=== PATIENT | female | born 1990 | race Caucasian/White ===

== ENCOUNTER → 2021-10-02 16:06 | Outpatient (BNVA) | payer SELFPAY | PROVIDERS: PCP Nurse Practitioner; Visit Provider Family Medicine Adult Medicine | DX: H10.9 Unspecified conjunctivitis (principal) | CPT/HCPCS: 86592; 87491; 87591 ==

== ENCOUNTER → 2025-01-11 11:11 | Outpatient (BNVA) | payer MEDICAID, SELFPAY | PROVIDERS: PCP Nurse Practitioner; Visit Provider Nurse Practitioner Women's Health | DX: N92.0 Excessive and frequent menstruation with regular cycle (principal); R93.89 Abnormal findings on diagnostic imaging of other specified body structures; N83.8 Other noninflammatory disorders of ovary, fallopian tube and broad ligament | CPT/HCPCS: 76830 ==

== ENCOUNTER → 2025-03-06 11:24 | Outpatient (BNVA) | payer MEDICAID, SELFPAY | PROVIDERS: PCP Nurse Practitioner; Visit Provider Obstetrics & Gynecology | DX: N94.6 Dysmenorrhea, unspecified (principal) | CPT/HCPCS: 88175 ==

== ENCOUNTER → 2025-04-17 11:30 | Outpatient (BNVA) | payer MEDICAID, SELFPAY | PROVIDERS: PCP Nurse Practitioner; Visit Provider Family Medicine | DX: Z01.818 Encounter for other preprocedural examination (principal) | CPT/HCPCS: 80053; 85007; 85027 ==

== ENCOUNTER 2025-04-25 11:59 | Inpatient (IN) | payer MEDICAID, SELFPAY ==
[2025-04-25] VITALS (16 sets, daily range): BP systolic 95–118; BP diastolic 55–81; PULSE 84–100; RESP 15–17; TEMP 36.6–37.4; O2SAT 90–100
--- NOTE | 2025-04-25 01:36 | W.PM.OPSFHP ---
Same Day Surgery H&P Indication for Procedure/HPI DATE OF PROCEDURE: April 25, 2025 CHIEF COMPLAINT/INDICATIONFOR SURGICAL PROCEDURE: painful and heavy periods PREOP DIAGNOSIS: menorrhagia; dysmenorrhea PLANNED PROCEDURE: Operation Date: 04/25/25 07:00 Proposed Procedures p Laparoscopic Assist Vaginal Hysterectomy 26607, N94.6(Not Applicable) - Ron Bowen MD Medications/Allergies* Allergies/Adverse Reactions Allergy/AdvReac Type Severity Reaction Status Date / Time morphine Allergy itching Verified 04/17/25 11:03 Pertinent History/Comorbid Conditions* Medical History (Updated 01/02/25 @ 10:02 by Adeline Nguyen NP) Bilateral conjunctivitis Family History (Updated 01/02/25 @ 09:46 by Caitlin Benavides CMA) Diabetes Grandmother High cholesterol Grandmother Heart disease Grandfather Breast cancer Mother Denies family history of Colon cancer Ovarian cancer Hypertension Uterine cancer Thyroid disease Stroke Social History Smoking and tobacco/nicotine status: current every day tobacco/nicotine user Second hand smoke exposure: No Alcohol intake: never Substance/Drug Use: never Pertinent Exam Findings alert, oriented x 3, clear to auscultation bilaterally and regular rate & rhythm Recommendations Surgery/Procedure today Coding Level of Care Code Acute Code for Chg Fwd
--- NOTE | 2025-04-25 06:38 | ANES.PREANE2 ---
Pre-Anesthetic Assessment Height/Weight: Height 5 ft 4 in Weight 165 lb Temp Pulse Resp BP Pulse Ox O2 Del Method 98.4 F 91 16 115/81 100 Room Air 04/25/25 06:19 04/25/25 06:19 04/25/25 06:19 04/25/25 06:19 04/25/25 06:19 04/25/25 06:19 Preop Diagnosis: menorrhagia; dysmenorrhea Operation Date: 04/25/25 07:00 Proposed Procedures p Laparoscopic Assist Vaginal Hysterectomy 99145, N94.6(Not Applicable) - Ron Bowen MD Was Beta Deisy taken within 24 hours: N/A Was Clonidine taken within 24 hours: N/A Last intake: Intake Last Liquid Date 04/24/25 Last Liquid Time 21:00 Last Solid Date 04/24/25 Last Solid Time 21:00 Social Tobacco and No alcohol Exam alert, oriented x 3, clear to auscultation bilaterally and regular rate & rhythm Airway Submandibular: within normal limits Cervical ROM: within normal limits Mallampati: Class I Dentition: full Anesthetic Plan ASA status: 2 Anesthesia: General Other: No prior issues with anesthesia NPO since yesterday evening Denies any cardiac issues Current smoker Labs reviewed from and acceptable for procedure Type and screen performed METs greater than 4 Plan for general anesthesia Medications/Allergies Home Medications ?Medication ?Instructions ?Recorded ?Confirmed ?Last Taken ?Type cyclobenzaprine 5 mg tablet 5 mg PO DAILY PRN muscle spasm #20 03/10/25 04/25/25 04/22/25 Rx tabs Allergies Allergy/AdvReac Type Severity Reaction Status Date / Time morphine AdvReac Mild itching Verified 04/25/25 06:20 [facility] Anesthesia Medical History Bilateral conjunctivitis Family History Mother Breast cancer Grandmother Diabetes High cholesterol Grandfather Heart disease Denies family history of Colon cancer Ovarian cancer Hypertension Uterine cancer Thyroid disease Stroke Social History Smoking and tobacco/nicotine status: current every day tobacco/nicotine user Second hand smoke exposure: No Alcohol intake: never Substance/Drug Use: never Female Reproductive History Date of last menstrual period: 04/17/25
--- NOTE | 2025-04-25 06:53 | W.PM.OPSUD ---
Surgery/Procedure H&P Update DATE OF PROCEDURE: April 25, 2025 DATE H&P PERFORMED: 04/25/25 H&P UPDATE INFORMATION: I have reviewed H&P completed within last 30 days, I have examined patient prior to procedure and No changes to prior documentation PREOP DIAGNOSIS: menorrhagia; dysmenorrhea PLANNED PROCEDURE: Operation Date: 04/25/25 07:00 Proposed Procedures p Laparoscopic Assist Vaginal Hysterectomy 65693, N94.6(Not Applicable) - Ron Bowen MD
[2025-04-25] MEDS: ceFAZolin 2,000 mg SDV 2000 MG IVP ×2 (06:57→11:10)
[2025-04-25] MEDS: metroNIDAZOLE IV 500 MG/100 ML PREMIX 100 MG IV (07:00)
[2025-04-25] MEDS: lidocaine-epi 2% PF 1:200,000 20 mL SDV XX (07:45)
--- NOTE | 2025-04-25 10:08 | PC.NURSE ---
Call made to update family memberJa of surgical status. No questions or concerns at this time
--- NOTE | 2025-04-25 11:34 | PM.OP2 ---
Brief Operative Note Date of procedure: 04/25/25 Pre-op diagnosis: menorrhagia, dysmenorrhea Post-op diagnosis: same Procedure Done: attempted laparoscopic-assisted vaginal hysterectomy cystotomy repair of cystotomy exploratory laparotomy total abdominal hysterectomy cystoscopy Surgeon: Ron Bowen Estimated blood loss (mL): 500 Complications: cystotomy Post-op Plan: floor Condition: stable Disposition: PACU
[2025-04-25] MEDS: fentaNYL 50 mcg/mL INJ 2mL IVP ×5 (12:05→21:16)
--- NOTE | 2025-04-25 12:20 | ANE.PACU2 ---
Inpatient post-anesthesia follow up: Airway intact: Yes Vital signs: Temperature 98.1 F Pulse Rate 84 Respiratory Rate 16 Blood Pressure 99/62 Pulse Oximetry 92 Oxygen Delivery Me thod Room Air Oxygen Flow Rate 8 Fraction of Inspir ed Oxygen Hydration adequate: Yes Nausea and vomiting: No Pain level: 1 Mental status: Baseline
--- NOTE | 2025-04-25 12:25 | PM.OP ---
Operative Report Date of procedure: April 25, 2025 Pre-op diagnosis: menorrhagia; dysmenorrhea Post-op diagnosis: same Post-op findings: Normal-sized uterus 1 cm cystotomy, repaired Normal ovaries Normal fallopian tubes Procedure done: Attempted laparoscopic assisted vaginal hysterectomy Cystostomy Repair of cystostomy Total abdominal hysterectomy Bilateral salpingectomy cystoscopy Implants: none Specimens removed/disposition: uterus fallopian tubes Surgeon: Ron Bowen MD Anesthesia: General Estimated blood loss (mL): 500 Complications: 1 cm cystotomy Findings: see above Condition: stable Disposition: PACU Brief History: 34 y.o. with history of menorrhagia and dysmenorrhea Procedure: The patient was taken to the operating room, placed supine on the table. General endotracheal anesthesia was induced. A shrestha catheter was placed which drained clear urine. The patient was placed in dorsolithotomy position for laparoscopic surgery. The abdomen and perineum were prepped and draped in the usual sterile fashion. A Zumi uterine elevator was placed via the cervix for manipulation of the uterus. An umbilical skin incision was made measuring approximately 1 cm. A laparoscopic trocar with sheath was inserted. After confirming intraperitoneal entry, a pneumoperitoneum was achieved. A laparoscope was inserted and used to visualize the pelvic organs. Normal ovaries were seen. The uterus was not enlarged. Normal bilateral fallopian tubes were seen. The liver edge was normal. Two additional skin incisions were made measuring 0.5 cm each in the suprapubic and left lower quadrant. 5 mm trocars with sheaths were inserted via these incisions under laparoscopic visualization. A Ligasure device and endograsper were placed. The Ligasure device was used to divide the round ligaments on both sides followed by the uteroovarian ligaments. These were successfully coagulated and divided without any bleeding. This was carried down to the uterine vessels. The uterine vessels on both sides were then divided and coagulated without any difficulties. The bladder flap was dissected away. The bladder was seen to be intact. It was then decided to proceed vaginally to complete the vaginal hysterectomy portion of the procedure. The pneumoperitoneum was allowed to escape. The Zumi was removed. A vaginal Bookwalter retractor was placed. The cervicovaginal junction was incised and the anterior and posterior cul-de-sacs were entered. At this point, it was noted there was a 1 cm cystotomy with leakage of urine. 3-O chromic suture was used to repair the cystotomy. Due to difficulty in visualization, it was decided to do a Pfannenstiel incision to complete the procedure. A Pfannenstiel incision was made and carried down through subcutaneous tissue, fascia, and peritoneum. The peritoneal cavity was entered. The hysterectomy was completed by performing a colpotomy. The uterus was removed. Both fallopian tubes were also removed usin the Ligasure device. No bleeding was seen. The vaginal cuff was then closed using a running suture of O-Vicryl. No bleeding was seen. Sterile baby formula, 50 cc, was instilled into the bladder via the Shrestha catheter. The Shrestha catheter was clamped. No extravasation of sterile formula was seen in the peritoneal cavity. The fascia was then closed with a continuous suture of O-Vicryl. There was no bleeding from the subcutaneous tissue. The skin was re-approximated with Insorb meliton. The laparoscopic wounds were closed using 3-O chromic. Cystoscopy was performed which showed an intact bladder following repair with no sutures visible. The patient was placed supine and taken to the recovery room. Postoperative condition stable EBL: 500 cc Complications: none To PACU in good condition
[2025-04-25] MEDS: HYDROcodone-acetaminophen 5-325 mg Tablet PO ×2 (12:40→18:35)
[2025-04-25] MEDS: ondansetron 2 mg/ML SDV 2 mL 4 MG IVP (16:48)
[2025-04-26] VITALS (8 sets, daily range): BP systolic 100–116; BP diastolic 61–70; PULSE 87–90; RESP 15–17; TEMP 36.8–37; O2SAT 95–98
[2025-04-26] MEDS: fentaNYL 50 mcg/mL INJ 2mL IVP ×4 (01:48→20:51)
[2025-04-26] MEDS: HYDROcodone-acetaminophen 5-325 mg Tablet PO (04:40)
[2025-04-26 05:48] LABS: Hematocrit 27.7 % (36-47); Hemoglobin 9.20 g/dL (11.27-16.99); Mean Corpuscular HGB Conc 33.2 g/dL (30-55); Mean Corpuscular Hemoglobin 29.8 pg (27-33); Mean Corpuscular Volume 89.6 fl (85-98); Platelet Count 199 10^3/cmm (157-399); Red Blood Count 3.09 10^6/uL (3.85-5.65); White Blood Count 12.78 10^3/uL (3.29-11.43)
[2025-04-26] MEDS: HYDROcodone-acetaminophen 5-325 mg Tablet 2 TAB PO ×3 (08:45→17:55)
--- NOTE | 2025-04-26 14:05 | P.PN_ITS ---
FINISHING LAB TECHNICIAN Subjective 2 Subjective: Interval history: c/o severe abdominal pain requiring IV pain meds no nausea or vomiting tolerating PO although ?not much appetite? + gas pains + ambulating Vitals/I&O/Wt Last Vital Signs Temp 98.3 F 04/27/25 04:00 Pulse 92 04/27/25 04:00 Resp 16 04/27/25 04:00 BP 123/83 04/27/25 04:00 Pulse Ox 96 04/27/25 04:00 O2 Del Method Room Air 04/27/25 04:00 O2 Flow Rate 8 04/25/25 12:02 04/26/25 04/26/25 04/27/25 14:59 22:59 06:59 Output Total 740 / 740 700 / 1440 500 / 1940 Balance -740 / -740 -700 / -1440 -500 / -1940 Weight last 48 hrs Weight 165 lb Physical Exam 2 Narrative: VS afebrile; BP, P, RR stable General comfortable, awake, alert Davis draining clear yellow urine; normal urine output Lungs: clear Cor: RRR Abd: soft, nondistended Mild diffuse tenderness No rebound Wounds clean and dry Ext: normal Postop Hgb 9.2 Urinary Catheter Management: Davis: Cath Placed During This Visit: yes Reason for Continuing Indwelling Catheter: Accurate Measurement of Urinary Output in Critically Ill Patients Urinary Catheter Date of Insertion: 04/25/25 Urinary Catheter Time of Insertion: 07:30 Data 04/26/25 05:40 A&P Assessment and plan 1. S/P hysterectomy: POD #1 Attempted laparoscopic assisted vaginal hysterectomy Cystostomy Repair of cystostomy Total abdominal hysterectomy Bilateral salpingectomy cystoscopy c/o severe incisional pain continue pain management continue postop care encourage PO intake, ambulation continue Davis drainage 2. Anemia: Rx iron BID PDMP PDMP Reviewed: Not Reviewed Attestations 2 Medical Necessity Statement*: patient s/p hysterectomy, for postop care Coding Level of Care Code Acute Code for Chg Fwd Diagnoses S/P hysterectomy Z90.710 Anemia D64.9
[2025-04-27] MEDS: ondansetron 2 mg/ML SDV 2 mL 4 MG IVP (01:54)
[2025-04-27 04:00] VITALS: BP 123/83; PULSE 92; RESP 16; TEMP 36.8; O2SAT 96
[2025-04-27] MEDS: HYDROcodone-acetaminophen 5-325 mg Tablet 2 TAB PO ×2 (08:32→11:57)
--- NOTE | 2025-04-27 10:40 | PC.NURSE ---
this nurse educated pt on how to empty shrestha catheter, educated pt on a leg bag if desired to wear one, educated on s/s of infection of each incision.
--- NOTE | 2025-04-27 11:37 | PC.NURSE ---
this nurse took out pt IV in Left forearm, intact, tolerated well
[2025-04-27 12:15] VITALS: BP 98/67; PULSE 87; RESP 16; TEMP 36.7; O2SAT 100
[2025-04-27 12:30] VITALS: BP 98/67; PULSE 87; RESP 16; TEMP 36.7; O2SAT 98
--- NOTE | 2025-04-27 14:05 | P.PN_ITS ---
OCCUPATIONAL THERAPY PROFESSOR Subjective 2 Subjective: Interval history: States abdominal pain much better no nausea or vomiting tolerating PO gas pains improved + ambulating Vitals/I&O/Wt Last Vital Signs Temp 98.1 F 04/27/25 12:30 Pulse 87 04/27/25 12:30 Resp 16 04/27/25 12:30 BP 98/67 04/27/25 12:30 Pulse Ox 98 04/27/25 12:30 O2 Del Method Room Air 04/27/25 12:15 O2 Flow Rate 8 04/25/25 12:02 Physical Exam 2 Narrative: VS afebrile; BP, P, RR stable General comfortable, awake, alert Davis draining clear yellow urine; normal urine output Lungs: clear Cor: RRR Abd: soft, nondistended Mild diffuse tenderness No rebound Wounds clean and dry Ext: normal Urinary Catheter Management: Davis: Cath Placed During This Visit: yes Reason for Continuing Indwelling Catheter: Accurate Measurement of Urinary Output in Critically Ill Patients Urinary Catheter Date of Insertion: 04/25/25 Urinary Catheter Time of Insertion: 07:30 Data 04/26/25 05:40 A&P Assessment and plan 1. S/P hysterectomy: POD #2 Attempted laparoscopic assisted vaginal hysterectomy Cystostomy Repair of cystostomy Total abdominal hysterectomy Bilateral salpingectomy cystoscopy plan discharge to home today continue Davis drainage Rx Macrobid, pyridium Return to see me in two days PDMP PDMP Reviewed: Last Reviewed 04/27/25 11:36 EDT by Ron Bowen MD Attestations 2 Medical Necessity Statement*: patient s/p hysterectomy, plan to discharge to home today Coding Level of Care Code Acute Code for Chg Fwd Diagnoses S/P hysterectomy Z90.710
--- NOTE | 2025-04-27 14:25 | PM.OBGYDC ---
Discharge Providers HOME HOUSEKEEPER Date of Admission: 04/25/25 11:59 Date of Discharge: 04/27/25 Attending Provider at Admission: Ron Bowen MD Attending Provider at Discharge: Ron Bowen MD Consults: none Primary HOME HOUSEKEEPER: Ron Bowen MD Primary Care Provider: ALIX Zapata Diagnoses at Discharge Discharge Diagnosis 1. S/P hysterectomy: Details from hospital stay: 34 y.o. admitted for hysterectomy for h/o heavy and painful periods laparoscopic assisted vaginal hysterectomy was attempted with repair of cystostomy Total abdominal hysterectomy was performed patient did well postoperatively was discharged to home on the second postoperative day plan was to continue Davis drainage for ten days postoperatively Reason for Visit Reason for Visit: N94.6 Brief History: 34 y.o. admitted for hysterectomy for h/o heavy and painful periods Hospital Course Hospital Course 34 y.o. admitted for hysterectomy for h/o heavy and painful periods laparoscopic assisted vaginal hysterectomy was attempted with repair of cystostomy Total abdominal hysterectomy was performed patient did well postoperatively was discharged to home on the second postoperative day plan was to continue Davis drainage for ten days postoperatively Physical Exam Narrative: VS afebrile; BP, P, RR stable General comfortable, awake, alert Davis draining clear yellow urine; normal urine output Lungs: clear Cor: RRR Abd: soft, nondistended Mild diffuse tenderness No rebound Wounds clean and dry Ext: normal Urinary Catheter Management: Davis: Cath Placed During This Visit: yes Reason for Continuing Indwelling Catheter: Accurate Measurement of Urinary Output in Critically Ill Patients Urinary Catheter Date of Insertion: 04/25/25 Urinary Catheter Time of Insertion: 07:30 History History History 5 Term 2 1 Miscarriages/Ectopic 2 Living Children 3 Discharge Data Studies Completed and Pending Completed Studies During Hospitalization Category Date Time Status Pathology: Surgical [PTH] Routine Pth 04/25/25 11:04 Completed Pending at discharge Category Date Time Status ES surgery / GI images Routine Exams 04/25/25 08:12 Ordered Laboratory Results WBC 12.78 10^3/uL (3.29-11.43) H 04/26/25 05:40 RBC 3.09 10^6/uL (3.85-5.65) L 04/26/25 05:40 Hgb 9.20 g/dL (11.27-16.99) L 04/26/25 05:40 Hct 27.7 % (36-47) L 04/26/25 05:40 MCV 89.6 fl (85-98) 04/26/25 05:40 MCH 29.8 pg (27-33) 04/26/25 05:40 MCHC 33.2 g/dL (30-55) 04/26/25 05:40 RDW 13.7 % (12.1-15.1) 04/26/25 05:40 Plt Count 199 10^3/cmm (157-399) 04/26/25 05:40 MPV 10.9 fL (7.4-10.4) H 04/26/25 05:40 Blood Type O Positive 04/25/25 06:40 Rho(D) Type Rh positive 04/25/25 06:40 Antibody Screen Negative 04/25/25 06:40 Procedures Performed total abdominal hysterectomy bilateral salpingectomy repair of cystotomy Vitals Last Vital Signs Temp 98.1 F 04/27/25 12:30 Pulse 87 04/27/25 12:30 Resp 16 04/27/25 12:30 BP 98/67 04/27/25 12:30 Pulse Ox 98 04/27/25 12:30 O2 Del Method Room Air 04/27/25 12:15 O2 Flow Rate 8 04/25/25 12:02 Results Labs OB ([facility]): Blood Type O Positive 05/12/25 Antibody Screen Negative 05/12/25 Hct, (36-47) 36.5 % 05/31/25 Hgb, (11.27-16.99) 12.00 g/dL 05/31/25 Rho(D) Type Rh positive 05/12/25 Plt Count, (157-399) 297 10^3/cmm 05/31/25 TSH, (0.27-4.20) 0.95 uIU/mL 05/31/25 FSH 1.7 mIU/mL 05/31/25 Pap Smear Interpret See note A 03/06/25 Discharge Plan Discharge Patient Disposition: Home Condition: Stable Prescriptions: No Action hydrocodone-acetaminophen 5-325 mg tablet 1 tab PO Q6H PRN oxycodone-acetaminophen [Percocet] 5-325 mg tablet 1 tab PO Q8H PRN (Reason: pain) 7 Days Qty: 20 0RF phenazopyridine [Pyridium] 100 mg tablet 100 mg PO TID Qty: 90 2RF solifenacin [Vesicare] 10 mg tablet 10 mg PO DAILY Qty: 30 2RF polyethylene glycol 3350 [Miralax] 17 gram/dose powder 4 g PO DAILY PRN ketorolac 10 mg Tablet 10 mg PO Q8H PRN (Reason: Pain) Qty: 9 0RF Discharge Order = DC NOW: Discharge Order (Routine); Ordered 04/27/25 Ordered By: Ron oBwen Referrals: Ron Bowen MD [Physician, HOME HOUSEKEEPER] - 05/04/25 10:30 am Discharge Diet: Usual diet Discharge Activity: Increase activity as tolerated Patient Instructions: Acute Wound Care (DC), Opioid Safety (DC), Laparoscopic Hysterectomy (DC), OB Discharge Report, OB Food/Drug Interaction Guide, Opioid Safety, Post Anesthesia Care, Patient Portal & Rudy Instructions Discharge Attestations HOME HOUSEKEEPER Time Spent in Discharge Care*: less than 30 min Coding Level of Care Code Acute Code for Chg Fwd Diagnoses S/P hysterectomy Z90.710
== END 2025-04-27 12:30 | disposition home or self-care (01) | DRG 742 ==
LOC: OBGYN 13:34
PROVIDERS: Admitting Provider Obstetrics & Gynecology; PCP Nurse Practitioner; Visit Provider Obstetrics & Gynecology
PROC: 0UT9FZZ Resection of Uterus, Via Natural or Artificial Opening With Percutaneous Endoscopic Assistance (ICD-10-PCS; principal; 2025-04-25 07:00)
PROC: 0TJB8ZZ Inspection of Bladder, Via Natural or Artificial Opening Endoscopic (ICD-10-PCS; CPT 58700; 2025-04-25 07:00)
PROC: 0TJB8ZZ Inspection of Bladder, Via Natural or Artificial Opening Endoscopic (ICD-10-PCS; CPT 52000; 2025-04-25 07:00)
PROC: 0TJB8ZZ Inspection of Bladder, Via Natural or Artificial Opening Endoscopic (ICD-10-PCS; CPT 49000; 2025-04-25 07:00)
DX: N92.0 Excessive and frequent menstruation with regular cycle (principal); N99.71 Accidental puncture and laceration of a genitourinary system organ or structure during a genitourinary system procedure; N94.6 Dysmenorrhea, unspecified; F17.200 Nicotine dependence, unspecified, uncomplicated; Z83.3 Family history of diabetes mellitus; Z82.49 Family history of ischemic heart disease and other diseases of the circulatory system; Z80.3 Family history of malignant neoplasm of breast; D64.89 Other specified anemias; N72 Inflammatory disease of cervix uteri; N32.89 Other specified disorders of bladder
CPT/HCPCS: 36415; 85027; 86850; 86900; 88307; A4216; J0690; J1100; J1171; J1885; J2250; J2405; J2704; J3010; J3490; J7030; J7121; J9999

== ENCOUNTER 2025-05-01 21:16 | Emergency (ER) | payer MEDICAID, SELFPAY ==
[2025-05-01 21:20] VITALS: BP 116/62; PULSE 106; RESP 14; TEMP 36.8; O2SAT 99
--- NOTE | 2025-05-01 21:36 | XRR_ITS ---
PROCEDURE INFORMATION: Exam: XR Abdomen Exam date and time: 05/01/2025 9:39 PM Age: 34 years old Clinical indication: Constipation; Prior surgery; Surgery date: 3-7 days post-operative; Surgery type: Hysterectomy TECHNIQUE: Imaging protocol: Radiologic exam of the abdomen. Views: Frontal supine view of the abdomen. 1 View. COMPARISON: l spine FINDINGS: Gastrointestinal tract: Extensive amount of feces in the entire colon, this indicates constipation. There are no dilated bowel loops. Bones/joints: No acute osseous abnormality. XR/XR abdomen 1V* [id number] IMPRESSION: Constipation.
--- NOTE | 2025-05-01 21:37 | ED_ITS ---
HPI - Abdominal Pain 2 General: Chief Complaint: Abdominal Pain Stated Complaint: Hyst, no bowel in 6 days Time Seen by Provider: 05/01/25 21:30 History of Present Illness: Patient comes in with abdominal and rectal pain. States that she is 6 days postop from a hysterectomy. States that initially the hysterectomy was transvaginal but she states they nicked her bladder and had to open her abdomen to repair the bladder. States that she has been unable to have a bowel movement since the surgery and is starting to have pain and fullness in her rectum. States she feels like she needs to go. States that she is able to manually feel the stool there. Has tried stool softeners and enema without success. On physical exam her surgical wounds are clean dry and intact. Her abdomen is soft, nondistended. She has very minimal tenderness which is expected postop. Will check x-ray, and reassess. Differential diagnosis: Acute constipation, acute peritonitis, acute ileus Associated Symptoms: Denies fever(s) Related Data Previous Rx's ?Medication ?Instructions ?Recorded cyclobenzaprine 5 mg tablet 5 mg PO DAILY PRN muscle s pasm #20 03/10/25 tabs nitrofurantoin 100 mg PO BID #20 caps 04/27 monohydrate/macrocrystals 100 mg capsule (Macrobid) oxycodone-acetaminophen 5 mg-325 1 tab PO Q6H PRN pain #30 tabs 04/27/25 mg tablet (Percocet) phenazopyridine 100 mg tablet 100 mg PO TID #60 tabs 0 04/27/25 (Pyridium) Allergies Allergy/AdvReac Type Severity Reaction Status Date / Time morphine AdvReac Mild itching Verified 05/01/25 21:24 Review of Systems 2 Const: Denies: fever(s) or body aches Resp: Denies: dyspnea or productive cough : Reports: other (Constipation) PFSH ED 2 PFSH: Medical History (Updated 05/02/25 @ 01:28 by Tripp Jules MD) Bilateral conjunctivitis Family History Mother Breast cancer Grandmother Diabetes High cholesterol Grandfather Heart disease Denies family history of Colon cancer Ovarian cancer Hypertension Uterine cancer Thyroid disease Stroke Social History Smoking and tobacco/nicotine status: current every day tobacco/nicotine user Second hand smoke exposure: No Alcohol intake: never Substance/Drug Use: never Physical Exam 2 HENMT: COMMON NORMALS: normocephalic and atraumatic HEAD & SCALP: n ormocephalic and atraumatic Eye: COMMON NORMALS: Equal, round and reactive pupils present and EOMs intact bilaterally PUPIL: Yes Equal, round and reactive pupils present Resp: COMMON NORMALS: normal respiratory effort, No retractions and No use of accessory muscles Cardio: COMMON NORMALS: regular rate and regular rhythm RATE: regular rate RHYTHM: regular rhythm GI: OTHER: Surgical wounds are clean dry and intact, abdomen is soft, nondistended, with very mild tenderness around the surgical incision site Extremity: COMMON NORMALS: normal to inspection and full ROM Psych: COMMON NORMALS: mental status grossly normal and cooperative Course 2 Vital Signs: Vital signs: Vital Signs Temperature 98.3 F 05/01/25 21:20 Pulse Rate 92 05/01/25 23:55 Respiratory Rate 16 05/01/25 23:55 Blood Pressure 117/73 05/01/25 23:55 Pulse Oximetry 97 05/01/25 23:55 Oxygen Delivery Me thod Room Air 05/01/25 23:55 MDM - Abdominal Pain Medical Decision Making On reassessment I talked with the patient about her test results. She was able to have a large bowel movement after the enema and GoLytely. She continues to have abdominal pain. It is difficult to determine if this is normal postop pain given the specific surgery she had, after discussing it with her we will check a CT abdomen pelvis and reassess. Will also treat her pain with 0.5 mg of IV Dilaudid. On reassessment I talked with the patient about her CT results. Her CT shows no acute intra-abdominal pathology. We discussed symptoms that should prompt immediate return to the emergency department. Will discharge at this time with precautions to return for worsening or changing symptoms. Lab Data 05/01/25 22:22 05/01/25 22:22 Labs/Radiology: Radiology Impressions Abdomen X-Ray 05/01/25 21:36 IMPRESSION: Constipation. Abdomen/Pelvis CT 05/01/25 23:45 IMPRESSION: There are a few small foci of pneumoperitoneum and mild stranding in the pelvis, likely related to recent surgery. No organized fluid collection. Laboratory Results WBC 12.43 10^3/uL (3.29-11.43) H 05/01/25 22:22 Corrected WBC Cancelled 05/01/25 22:00 RBC 3.51 10^6/uL (3.85-5.65) L 05/01/25 22:22 Hgb 10.40 g/dL (11.27-16.99) L 05/01/25 22:22 Hct 31.6 % (36-47) L 05/01/25 22:22 MCV 90.0 fl (85-98) 05/01/25 22:22 MCH 29.6 pg (27-33) 05/01/25: MCHC 32.9 g/dL (30-55) 05/01/25: RDW 13.3 % (12.1-15.1) 05/01/25:22 Plt Count 357 10^3/cmm (157-399) 05/01/25 22:22 MPV 10.6 fL (7.4-10.4) H 05/01/25 22:22 Gran % Cancelled 05/01/25 22:00 Neut % (Auto) 65.4 % 05/01/25 22: Lymph % (Auto) 25.9 % 05/01/25 22: Sierra % (Auto) 6.0 % 05/01/25: Eos % (Auto) 1.9 % 05/01/25: Baso % (Auto) 0.5 % 05/01/25: Neut # (Auto) 8.13 10^3/uL (1.8-7.7) H 05/01/25 22:22 Lymph # (Auto) 3.2 10^3/uL (0.8-4.8) 05/01/25 22:22 Sierra # (Auto) 0.7 10^3/uL (0.2-0.9) 05/01/25: Eos # (Auto) 0.2 10^3/uL (0.0-0.8) 05/01/25 22:22 Baso # (Auto) 0.1 10^3/uL (0.0-0.1) 05/01/25:22 Absolute Gran (auto) Cancelled 05/01/25 22:00 Nucleated RBC % (auto) 0 % 05/01/25 22:22 Nucleated RBCs # 0.0 /100WBC 05/01/25 22:22 Sodium 137 mmol/L (136-145) 05/01/25 22:22 Potassium 3.9 mmol/L (3.5-5.1) 05/01/25 22:22 Chloride 102 mmol/L (98-107) 05/01/25 22:22 Carbon Dioxide 25 mmol/L (22-29) 05/01/25 22:22 Anion Gap 13.9 (5-19) 05/01/25 22:22 BUN 10 mg/dL (6-20) 05/01/25 22:22 Creatinine 0.6 mg/dL (0.5-0.9) 05/01/25 22:22 GFR Calculation 113.8 mL/min (90-130) 05/01/25 22:22 Glucose 99 mg/dL (65-115) 05/01/25 22:22 Calculated Osmolality 283 mOsm/kg (285-295) L 05/01/25 22:22 Calcium 9.0 mg/dL (8.5-10.5) 05/01/25 22:22 All radiology interpretation(s) finalized by discharge Discharge Plan Discharge Patient Disposition: Home Clinical Impression: Constipation due to pain medication Condition: Stable Prescriptions: No Action cyclobenzaprine 5 mg tablet 5 mg PO DAILY PRN (Reason: muscle spasm) Qty: 20 0RF Rx Instructions: take 1-2 tabs daily as needed oxycodone-acetaminophen [Percocet] 5-325 mg tablet 1 tab PO Q6H PRN (Reason: pain) Qty: 30 0RF phenazopyridine [Pyridium] 100 mg tablet 100 mg PO TID Qty: 60 2RF nitrofurantoin monohyd/m-cryst [Macrobid] 100 mg capsule 100 mg PO BID Qty: 20 0RF Rx Instructions: must administer with a meal/food Discharge Orders: Discharge ED (Routine); Ordered 05/02/25 Ordered By: Tripp Jules Patient Instructions: Opioid Safety, Pain Management, Patient Portal & Rudy Instructions Print Language: Lithuanian Coding Level of Care Code ED Gathering Machine Setter for Suleman Harding
[2025-05-01] MEDS: peg /e-lyte soln 4,000 mL Btl 1500 ML PO (22:24)
[2025-05-01 22:30] LABS: Hematocrit 31.6 % (36-47); Hemoglobin 10.40 g/dL (11.27-16.99); Mean Corpuscular HGB Conc 32.9 g/dL (30-55); Mean Corpuscular Hemoglobin 29.6 pg (27-33); Mean Corpuscular Volume 90.0 fl (85-98); Nucleated Red Blood Cells % 0 %; Platelet Count 357 10^3/cmm (157-399); Red Blood Count 3.51 10^6/uL (3.85-5.65); White Blood Count 12.43 10^3/uL (3.29-11.43)
[2025-05-01 22:47] LABS: Anion Gap 13.9 (5-19); Blood Urea Nitrogen 10 mg/dL (6-20); Calcium 9.0 mg/dL (8.5-10.5); Carbon Dioxide 25 mmol/L (22-29); Chloride 102 mmol/L (98-107); Creatinine Clr Calc Pharmacy 129.6546; Glucose 99 mg/dL (65-115); Osmolality Calculated 283 mOsm/kg (285-295); Potassium 3.9 mmol/L (3.5-5.1); Sodium 137 mmol/L (136-145)
--- NOTE | 2025-05-01 23:45 | CTR_ITS ---
PROCEDURE INFORMATION: Exam: CT Abdomen And Pelvis With Contrast Exam date and time: 05/02/2025 12:06 AM Age: 34 years old Clinical indication: Pain; Other: Uterine; Prior surgery; Surgery date: 3-7 days post-operative; Surgery type: Hysterectomy; Additional info: Worsening abd pain post op from hysterectomy TECHNIQUE: Imaging protocol: Computed tomography of the abdomen and pelvis with contrast. Radiation optimization: All CT scans at this facility use at least one of these dose optimization techniques: automated exposure control; mA and/or kV adjustment per patient size (includes targeted exams where dose is matched to clinical indication); or iterative reconstruction. Contrast material: OMNI 350; Contrast volume: 100 ml; Contrast route: INTRAVENOUS (IV); COMPARISON: CR (ABDOMEN, ) 05/01/2025 9:39 PM RADIATION DOSE METRICS: Total DLP (mGy-cm): 572.9 FINDINGS: Lungs: Subsegmental atelectasis in the left lower lobe. Liver: Normal. No mass. Gallbladder and biliary ducts: Normal. No calcified stones. No ductal dilation. Pancreas: Normal. No ductal dilation. Spleen: Normal. No splenomegaly. Adrenal glands: Normal. No mass. Kidneys and ureters: Normal. No hydronephrosis. Stomach and bowel: Unremarkable. No obstruction. No mucosal thickening. Appendix: No evidence of appendicitis. Intraperitoneal space: There are few foci of pneumoperitoneum, likely related to recent surgery. There is mild stranding in the pelvis, likely related to recent surgery. No organized fluid collection. Vasculature: Unremarkable. No abdominal aortic aneurysm. Lymph nodes: Unremarkable. No enlarged lymph nodes. Urinary bladder: The urinary bladder is decompressed around a Davis catheter. Reproductive: A right corpus luteum is noted. The uterus is surgically absent. Bones/joints: Unremarkable. No acute fracture. Soft tissues: Postsurgical changes in the anterior abdominal wall related to recent surgery. CT/CT abdomen pelvis w con* [id number] IMPRESSION: There are a few small foci of pneumoperitoneum and mild stranding in the pelvis, likely related to recent surgery. No organized fluid collection.
[2025-05-01 23:55] VITALS: BP 117/73; PULSE 92; RESP 16; O2SAT 97
[2025-05-02] MEDS: HYDROmorphone 0.5 MG/0.5 ML INJ IVP (00:07)
[2025-05-02] MEDS: iohexol 350 mg/mL 500 mL Btl (per mL) IV (00:10)
[2025-05-02 00:30] VITALS: BP 121/74; PULSE 92; RESP 15; O2SAT 95
[2025-05-02 01:53] VITALS: BP 114/69; PULSE 89; RESP 15; O2SAT 96
== END 2025-05-02 01:48 | disposition home or self-care (01) ==
PROVIDERS: Emergency Provider Emergency Medicine
DX: K59.03 Drug induced constipation (principal); Z72.0 Tobacco use; Z90.710 Acquired absence of both cervix and uterus; Z98.890 Other specified postprocedural states
CPT/HCPCS: 74018; 74177; 80048; 85025; 96361; 96374; 99285; J1171; J7030; J9999

== ENCOUNTER 2025-05-12 02:06 | Inpatient (IN) | payer MEDICAID, SELFPAY ==
--- OUTSIDE RECORDS SUMMARY | 2025-05-11 23:58 | XMS_ITS | Encounter Summary ---
Author Organization [facility] Address [address] [place] [address] Care Team Providers Care Program Management Professional Name Role Phone Unavailable Primary Care Provider Unavailabl e Reason for Visit * Reason Comments Vaginal Bleeding Patient woke up at 2 300 this evening to use the restroom. Patient noticed when she wiped that she had blood on her toilet paper. Patient states she started passing small clots initially but then the blood just kept pouring out. Patient was wrapped in a dark towel upon arrival and it was hard to tell how much blood there was on the towel, however there was significant clots. Patient had hysterectomy on 04/25/25. Initially it was vaginal, then they nicked her bladder causing them to open her up. Encounter Details Date Type Department Care Team (Late st Contact Info) Description 05/11/2025 11:58 PM CDT - 05/12/2025 1:38 AM CDT Emergency [facility] Emergency Medicine [address] [facility] [address] [place] [phone] Jase Paul MD [address] [facility] [address] [place] [phone] Vaginal bleeding (Primary Dx) Discharge Disposition: Acute Care Hospital Social History Tobacco Use Types Packs/Day Years Used Date Smoking Tobacco: Former Cigarettes Tobacco Cessation:Counseling Given: Not Answered Alcohol Use Standard Drinks/Week Comments Yes 0 (1 standard drink = 0.6 oz pur e alcohol) socially Feeling Safe Answer Date Recorded Are you in a relationship wi th someone who hurts you emotionally and/or physically? No 05/12/2025 Comments No Sex and Gender Information Value Date Recorded Sex Assigned at Not on file Legal Sex Female 11:49 PM CDT Gender Identity Not on file Sexual Orientation Not on file documented as of this encounter Last Filed Vital Signs Vital Sign Reading Time Taken Comments Blood Pressure 104/61 05/12/2025 1:15 AM CDT Pulse 77 05/12/2025 1:30 AM CDT Temperature 36.5 C (97.7 F) 05/12/2025 12:05 AM CDT Respiratory Rate 12 05/12/2025 1:30 AM CDT Oxygen Saturation 100% 05/12/2025 1:30 AM CDT Inhaled Oxygen Concentration - - Weight 75.8 kg (167 lb) 05/12/2025 12:05 AM CDT Height 162.6 cm (5' 4 ) 05/12/2025 12:05 AM CDT Body Mass Index 28.67 05/12/2025 12:05 AM CDT documented in this encounter Medications at Time of Discharge oxyCODONE-acetami nophen (PERCOCET) 5-325 mg tablet Take 1 Tablet by mouth every 4 hours as needed for Pain, Moderate. ibuprofen (MOTRIN) 200 mg tablet Take 800 mg by mouth every 6 hours as needed for Pain, Mild. documented as of this encounter ED Notes * Martir Tam RN - 05/12/2025 1:36 AM CDT Report given to [facility]. Patient cleaned and transferred to EMS stretcher. Patient continues to bleed large clots. Patient belongings sent with significant other. Patient IV's patent and saline locked. * Martir Tam RN - 05/12/2025 1:16 AM CDT Transport has been arranged with [facility]. * Martir Tam RN - 05/12/2025 12:32 AM CDT Caitlin Covarrubias is a 34 y.o. female who arrives to the Emergency Department by private car. Chief Complaint Patient presents with Vaginal Bleeding Patient woke up at 2300 this evening to use the restroom. Patient noticed when she wiped that she had blood on her toilet paper. Patient states she started passing small clots initially but then the blood just kept pouring out. Patient was wrapped in a dark towel upon arrival and it was hard to tell how much blood there was on the towel, however there was significant clots. Patient had hysterectomy on 04/25/25. Initially it was vaginal, then they nicked her bladder causing them to open her up. Patient states she had a shrestha catheter until last and has not had any issues with urinating since. Patient was up and around today but didn't lift anything or do any strenuous activity. Pain is 0/10. VSS, aaox4, ATKINS, behavior appropriate to circumstance, no acute distress at this time. Airway patent, self-maintained with even, non-labored respirations. Perfusion within normal limits forage. Skin color normal for ethnicity, warm, dry and intact. Instructed patient to remove clothing per policy, ensured patient privacy, gown provided to patient. ID band present. Patient in bed in low position with wheels locked. Patient informed of plan of care. Patient verbalized understanding and in agreement with plan of care, all questions answered. Comfort measures offered. spouse at bedside at this time. Monitors on and audible. Patient placed on continuous steel die printer, pulse ox and blood pressure monitoring. Call light at bedside. Patient encouraged to call with needs. Will continue to monitor. Weapons assessment performed. Education provided regarding facility weapon storage and securement policy. Caitlin Covarrubias denied possession of any weapons or firearms at this time * Jase Paul MD - 05/11/2025 11:49 PM CDT HISTORY OF PRESENT ILLNESS Patient is a 34-year-old with past medical history of uterine fibroids. She is here accompanied by her with complaints of vaginal bleeding. About 11:00 tonight she started passing large clotsfrom her vagina as well as continued actively bleed. She had a transvaginal hysterectomy on the of this month in [place] which was complicated by bladder injury which necessitated conversionto open. She had a Shrestha catheter in until last has been urinating since then. Denies any objects in the vagina or trauma. Has felt mildly lightheaded no nausea abdominal pain or vomiting PAST MEDICAL HISTORY REVIEWED MEDICAL: Patient has a past medical history of Adenomyosis. SURGICAL: Patient has a past surgical history that includes hysterectomy and tonsillectomy. ALLERGIES Morphine PHYSICAL EXAM INITIAL VS BP: 113/62 (05/12/25 0005), Heart Rate: 100 bpm (05/12/25 0015), Resp: 20 (05/12/25 0015), Pulse: (!) 102 (05/12/25 0015), Temp: 97.7 ??F (36.5 ??C) (05/12/254), Temp src: Oral (05/12/254), SpO2: 97 % (05/12/254), Height: 5' 4 (162.6 cm) (05/12/254), Weight: 75.8 kg (167 lb) (05/12/254), BMI (Calculated): (!) 28.67 (05/12/254) No LMP recorded. Patient has had a hysterectomy. Physical Exam Vitals and nursing note reviewed. Exam conducted with a head of training and development present. Constitutional: General: She is not in acute distress. Appearance: Normal appearance. She is normal weight. She is not ill-appearing, toxic-appearing or diaphoretic. HENT: Head: Normocephalic and atraumatic. Nose: Nose normal. Cardiovascular: Rate and Rhythm: Normal rate and regular rhythm. Pulses: Normal pulses. Heart sounds: Normal heart sounds. Pulmonary: Effort: Pulmonary effort is normal. Breath sounds: Normal breath sounds. Abdominal: General: Abdomen is flat. Genitourinary: General: Normal vulva. Exam position: Knee-chest position. Vagina: Bleeding present. Comments: Moderate continual bleeding with 2 large plum sized clots no obvious source of bleeding Skin: General: Skin is warm. Neurological: General: No focal deficit present. Mental Status: She is alert and oriented to person, place, and time. DIAGNOSTICS LAB: CBC WITH DIFFERENTIAL - Abnormal Result Value WBC 12.7 (*) RBC 3.54 (*) HEMOGLOBIN 10.6 (*) HEMATOCRIT 31.9 (*) MCV 90.1 MCH 29.9 MCHC 33.2 RDW 13.5 RDW-STDEV 44.9 PLATELETS 456 (*) MPV 10.9 COMPREHENSIVE METABOLIC PANEL - Abnormal SODIUM 139 POTASSIUM 3.9 CHLORIDE 103 CO2 23 CALCIUM 9.6 BUN 20 CREATININE 0.76 GLUCOSE 140 (*) TOTAL PROTEIN 6.8 ALBUMIN 4.4 BILIRUBIN TOTAL <0.2 ALKALINE PHOSPHATASE 48 AST 19 ALT 26 GFR >60 ANION GAP 13 LACTIC ACID - Abnormal LACTIC ACID 2.5 (*) MANUAL DIFFERENTIAL - Abnormal SEGMENTED NEUTROPHILS 43 (*) LYMPHOCYTES RELATIVE 48 (*) MONOCYTES RELATIVE 5 EOSINOPHILS RELATIVE 2 BASOPHILS RELATIVE 2 NEUTROPHILS ABSOLUTE COUNT 5.46 (*) LYMPHOCYTES ABSOLUTE 6.10 (*) MONOCYTES ABSOLUTE 0.64 EOSINOPHILS ABSOLUTE 0.25 BASOPHILS ABSOLUTE 0.25 (*) TOTAL CELLS COUNTED IN DIFF 100 PLATELET EST. Consistent w Count RBC MORPHOLOGY Normal TYPE AND SCREEN PREPARE RED BLOOD CELLS RADIOLOGY: No orders to display EKG: PROCEDURES Procedures MEDICAL DECISION MAKING AND PLAN OF CARE Medical Decision Making Patient is a 34-year-old here with post hysterectomy bleeding Is hemodynamically stable she has a MAP of 105. Will go ahead and arrange for 2 units of O- to be used in case but we do not need to activate massive transfusion protocol. Will give her a liter of LRfor now-type and cross as well as get labs I did speak to the patient's quality control lab tech to wishes the patient to be transferred to their hospitals will transfer to [facility] will await handoff with attending in the emergency department as I feel that she needs to be transferred there Did speak to the gynecology attending did not recommend packing at this time Amount and/or Complexity of Data Reviewed Labs: ordered. Risk Prescription drug management. Clinical Scoring & Consults Medications Administered During the ED Stay from 05/11/2025 2349 to 05/12/2025 0105 Date/Time Order Dose Route Action 05/12/2025 0029 CDT lactated ringers infusion 1,000 mL 1,000 mL IV New Bag . New Prescriptions for this Encounter LAST VS BP: 100/60 (05/12/2544), Heart Rate: 82 bpm (05/12/2544), Resp: 14 (05/12/2544), Pulse: 79(05/12/2544), Temp: 97.7 ??F (36.5 ??C) (05/12/25 0005), Temp src: Oral (05/12/254), SpO2: 98 % (05/12/2544) CLINICAL IMPRESSION Diagnosis Diagnosis Comment Added By Time Added Vaginal bleeding [N93.9] Jase Paul MD 05/12/2025 12:34 AM DISPOSITION, EDUCATION AND MEDICATION RECONCILIATION Medications reconciled. See after visit summary for patient education on discharged patients. ED Disposition ED Disposition Transfer Condition Stable User Jase Paul MD Date/Time ThuMay 12, 2025 12:34 AM Comment -- ATTESTATION STATEMENTS documented in this encounter Plan of Treatment Pending Results Name Type Priority Associated Diagnoses Date /Time VERIFICATION BLOOD GROUP Blood Bank Stat 05/11/2025 11:52 PM CDT Scheduled Orders Name Type Priority Associated Diagnoses Orde r Schedule VERIFICATION BLOOD GROUP Blood Bank Stat ONE TIME for 1 Occurrences starting 05/12/2025 until 05/12/2025, 1 completed documented as of this encounter Procedures Procedure Name Priority Date/Time Associated Diagnosis Comments DIFFERENTIAL, MANUAL Stat 05/11/2025 11:52 PM CDT LACTIC ACID Stat 05/11/2025 11:52 PM CDT CBC WITH DIFFERENTIAL Stat 05/11/2025 11:52 PM CDT TYPE AND SCREEN Stat 05/11/2025 11:52 PM CDT COMPREHENSIVE METABOLIC PANEL Stat 05/11/2025 11:52 PM CDT documented in this encounter Results * (ABNORMAL) MANUAL DIFFERENTIAL (05/11/2025 11:52 PM CDT) SEGMENTED NEUTROPHILS 43(L) 45 - 70 % 05/12/2025 12:49 AM CDT [facility] LYMPHOCYTES RELATIVE 48(H) 20 - 45 % 05/12/2025 12:49 AM CDT [facility] MONOCYTES RELATIVE 5 2 - 8 % 05/12/2025 12:49 AM [facility] EOSINOPHILS RELATIVE 2 0 - 5 % 05/12/2025 12:49 AM [facility] BASOPHILS RELATIVE 2 0 - 2 % 05/12/2025 12:49 AM [facility] NEUTROPHILS ABSOLUTE COUNT 5.46(H) 1.78 - 5.38 K/uL 05/12/2025 12:49 AM [facility] LYMPHOCYTES ABSOLUTE 6.10(H) 1.20 - 4.00 K/uL 05/12/2025 12:49 AM [facility] MONOCYTES ABSOLUTE 0.64 0.30 - 0.82 K/uL 05/12/2025 12:49 AM [facility] EOSINOPHILS ABSOLUTE 0.25 0.04 - 0.54 K/uL 05/12/2025 12:49 AM [facility] BASOPHILS ABSOLUTE 0.25(H) 0.01 - 0.08 K/uL 05/12/2025 12:49 AM [facility] TOTAL CELLS COUNTED IN DIFF 100 05/12/2025 12:49 AM [facility] PLATELET EST. Consistent w Count 05/12/2025 12:49 AM [facility] RBC MORPHOLOGY Normal 05/12/2025 12:49 AM [facility] Blood Venipuncture / Unknown 05/11/2025 11:52 PM CDT 05/12/2025 12:09 AM CDT us Jase Paul MD HEMATOLOGY ORDERABLES COM Final Result [facility] CLIA # [id number] [address] [place] [id number] * (ABNORMAL) LACTIC ACID (05/11/2025 11:52 PM CDT) LACTIC ACID 2.5(H) <=2.0 mmol/L 05/12/2025 12:42 AM [facility] Blood BLOOD SPECIMEN / Unknown Venipuncture / Unknown 05/11/2025 11:52 PM CDT 05/12/2025 12:09 AM CDT Jase Paul MD CHEMISTRY ORDERABLES Final Result Performing Organization Address City/[facility]/ZIP Co de Phone Number [facility] CLIA # [id number] [address] [place] [address] * TYPE AND SCREEN (05/11/2025 11:52 PM CDT) ABO/RH TYPE O POS 05/12/2025 1:20 AM CDT [facility] ANTIBODY SCREEN Negative 05/12/2025 1:20 AM CDT [facility] Blood Venipuncture / Unknown 05/11/2025 11:52 PM CDT 05/12/2025 12:09 AM CDT Jase Paul MD BLOOD BANK ORDERABLES Final Result Performing Organization Address City/[facility]/ZIP Co de Phone Number [facility] CLIA # [id number] [address] [place] [id number] * (ABNORMAL) COMPREHENSIVE METABOLIC PANEL (05/11/2025 11:52 PM CDT) SODIUM 139 136 - 145 mmol/L 05/12/2025 12:42 AM CDT [facility] POTASSIUM 3.9 3.5 - 5.1 mmol/L 05/12/2025 12:42 AM CDT [facility] CHLORIDE 103 98 - 107 mmol/L 05/12/2025 12:42 AM CDT [facility] CO2 23 22 - 29 mmol/L 05/12/2025 12:42 AM CDT [facility] CALCIUM 9.6 8.6 - 10.0 mg/dL 05/12/2025 12:42 AM CDT [facility] BUN 20 6 - 20 mg/dL 05/12/2025 12:42 AM [facility] CREATININE 0.76 0.51 - 0.95 mg/dL 05/12/2025 12:42 AM [facility] GLUCOSE 140(H) 74 - 99 mg/dL 05/12/2025 12:42 AM [facility] TOTAL PROTEIN 6.8 6.6 - 8.7 g/dL 05/12/2025 12:42 AM [facility] ALBUMIN 4.4 3.5 - 5.2 g/dL 05/12/2025 12:42 AM [facility] BILIRUBIN TOTAL <0.2 0.0 - 1.2 mg/dL 05/12/2025 12:42 AM [facility] ALKALINE PHOSPHATASE 48 35 - 104 U/L 05/12/2025 12:42 AM [facility] AST 19 0 - 35 U/L 05/12/2025 12:42 AM [facility] ALT 26 0 - 35 U/L 05/12/2025 12:42 AM [facility] GFR >60 >=60 mL/min/1.7 3 sq meter 05/12/2025 12:42 AM [facility] Comment:eGFR calculated with 2020 CKD-EPI equation. Vegetarian diet, extremely high or low muscle mass, and may affect results. Cystatin C with Glomerular Filtration Rate is a suitable alternative for these patients. ANION GAP 13 5 - 20 mmol/L 05/12/2025 12:42 AM [facility] Blood Venipuncture / Unknown 05/11/2025 11:52 PM CDT 05/12/2025 12:09 AM CDT us aJse Paul MD CHEMISTRY ORDERABLES Final Result [facility] CLIA # [id number] [address] [place] [id number] * (ABNORMAL) CBC WITH DIFFERENTIAL (05/11/2025 11:52 PM CDT) WBC 12.7(H) 4.0 - 10.0 K/uL 05/12/2025 12:49 AM [facility] RBC 3.54(L) 3.93 - 5.22 M/uL 05/12/2025 12:49 AM [facility] HEMOGLOBIN 10.6(L) 11.2 - 15.7 g/dL 05/12/2025 12:49 AM [facility] HEMATOCRIT 31.9(L) 34.1 - 44.9 % 05/12/2025 12:49 AM [facility] MCV 90.1 79.4 - 94.8 fL 05/12/2025 12:49 AM [facility] MCH 29.9 25.6 - 32.2 pg 05/12/2025 12:49 AM [facility] MCHC 33.2 32.2 - 35.5 g/dL 05/12/2025 12:49 AM [facility] RDW 13.5 11.0 - 14.5 % 05/12/2025 12:49 AM [facility] RDW-STDEV 44.9 36.9 - 56.9 fL 05/12/2025 12:49 AM [facility] PLATELETS 456(H) 163 - 337 K/uL 05/12/2025 12:49 AM [facility] MPV 10.9 10.0 - 14.8 fL 05/12/2025 12:49 AM [facility] Blood Venipuncture / Unknown 05/11/2025 11:52 PM CDT 05/12/2025 12:09 AM T us Jase Paul MD HEMATOLOGY ORDERABLES Final Result [facility] CLIA # [id number] [address] [place] [address] [id number] documented in this encounter Visit Diagnoses Diagnosis Vaginal bleeding- Primary Other specified noninflammatory disorder of vagina documented in this encounter Administered Medications Inactive Administered Medications - up to 3 most recent administrations Medication Order MAR Action Action Date Dose Rate Site lactated ringers infusion 1,000 mL IV, ONE TIME ONLY, 1 dose, On Thu05/12/25 at 0030, Stat New Bag 05/12/2025 12:29 AM CDT 1,000 mL 999 mL/hr documented in this encounter Active and Recently Administered Medications Times are shown in CDT. Scheduled Medication Order 05/10/2025 05/11/2025 05/12/2025 lactated ringers infusion 1,000 mL (COMPLETED) IV, ONE TIME ONLY, 1 dose, On Thu05/12/25 at 0030, Stat 0029 (New Bag - Prov ider: Martir Tam RN)[id number] (Stopped - Provider: Martir Tam RN) documented in this encounter
[2025-05-12] VITALS (29 sets, daily range): BP systolic 67–128; BP diastolic 41–80; PULSE 45–117; RESP 13–28; TEMP 36.5–37.1; O2SAT 90–100; BMI 28.3
--- OUTSIDE RECORDS SUMMARY | 2025-05-12 02:17 | XMS_ITS | Encounter Summary ---
Author Organization [facility] Address [address] [place] [address] Care Team Providers Care Escalator Operator Name Role Phone Unavailable Primary Care Provider Gloria e Encounter Details Date Type Department Care Team (Late st Contact Info) Description 05/12/2025 Lab Requisition [facility] [place] [address] [phone] Ervin Tavares MD [address] [facility] [address] [place] [phone] Social History Tobacco Use Types Packs/Day Years Used Date Smoking Tobacco: Former Cigarettes Alcohol Use Standard Drinks/Week Comments Yes 0 [...] on file documented as of this encounter Plan of Treatment Not on file documented as of this encounter Visit Diagnoses Not on filedocumented in this encounter
--- OUTSIDE RECORDS SUMMARY | 2025-05-12 02:17 | XMS_ITS | Clinical Summary ---
Author Organization [facility] Address [address] [place] [phone] Phone Care Team Providers Care Machine Operator General Name Role Phone Unavailable Primary Care Provider Unavailabl e Allergies Active Allergy Reactions Criticality Noted Date Comments Morphine Itching Low 05/12/2025 Medications oxyCODONE-acetam inophen (PERCOCET) 5-325 mg tablet Take 1 Tablet by mouth every 4 hours as needed for Pain, Moderate. Active ibuprofen (MOTRIN) 200 mg tablet Take 800 mg by mouth every 6 hours as needed for Pain, Mild. Active Encounters Date Type Department Care Team Description 05/12/2025 Travel 05/12/2025 Lab Requisition [facility] Laboratory Services [address] [phone] Ervin Tavares MD 05/11/2025 11:58 PM CDT - 05/12/2025 1:38 AM CDT Emergency [facility] Emergency Medicine [address] [place] [phone] Jase Paul MD Vaginal bleeding (Primary Dx) Discharge Disposition: Acute Care Hospital from Last 3 Months Social History Tobacco Use Types Packs/Day Years [...] on file Sexual Orientation Not on file Last Filed Vital Signs Vital Sign Reading [...] Mass Index 28.67 05/12/2025 12:05 AM CDT Plan of Treatment Health Maintenance Due Date Last Done Comments DTAP/TDAP/TD VACCINES (1 - Tdap) 2008 HEPATITIS B VACCINES (1 of 3 - 19+ 3-dose series) 06/15 HPV/Cotest (21-29) 2010 HPV VACCINES (1 - 3-dose SCDM series) 2016 CERVICAL CANCER SCREENING 2019 HPV/Cotest (30-65) 2019 PAP SMEAR 2019 INFLUENZA VACCINE (#1) 2025 Procedures Procedure Name Priority Date/Time Associated Diagnosis Comments TYPE AND SCREEN Stat 05/11/2025 11:52 PM CDT DIFFERENTIAL, MANUAL Stat 05/11/2025 11:52 PM CDT LACTIC ACID Stat 05/11/2025 11:52 PM CDT COMPREHENSIVE METABOLIC PANEL Stat 05/11/2025 11:52 PM CDT CBC WITH DIFFERENTIAL Stat 05/11/2025 11:52 PM CDT from Last 3 Months Results * (ABNORMAL) MANUAL DIFFERENTIAL (05/11/2025 11:52 PM CDT) SEGMENTED NEUTROPHILS 43(L) 45 - 70 % 05/12/2025 12:49 AM [facility] LYMPHOCYTES RELATIVE 48(H) 20 - 45 % 05/12/2025 12:49 AM [facility] MONOCYTES RELATIVE 5 2 - 8 % 05/12/2025 12:49 AM [facility] EOSINOPHILS RELATIVE 2 0 - 5 % 05/12/2025 12:49 AM [facility] BASOPHILS RELATIVE 2 0 - 2 % 05/12/2025 12:49 AM [facility] NEUTROPHILS ABSOLUTE COUNT 5.46(H) 1.78 - 5.38 K/uL 05/12/2025 12:49 AM [facility] LYMPHOCYTES ABSOLUTE 6.10(H) 1.20 - 4.00 K/uL 05/12/2025 12:49 AM [facility] MONOCYTES ABSOLUTE 0.64 0.30 - 0.82 K/uL 05/12/2025 12:49 AM [facility] EOSINOPHILS ABSOLUTE 0.25 0.04 - 0.54 K/uL 05/12/2025 12:49 AM [facility] BASOPHILS ABSOLUTE 0.25(H) 0.01 - 0.08 K/uL 05/12/2025 12:49 AM [facility] TOTAL CELLS COUNTED IN DIFF 100 05/12/2025 12:49 AM [facility] PLATELET EST. Consistent w Count 05/12/2025 12:49 AM [facility] RBC MORPHOLOGY Normal 05/12/2025 12:49 AM [facility] Blood Venipuncture / Unknown 05/11/2025 11:52 PM CDT 05/12/2025 12:09 AM CDT us Jase Paul MD HEMATOLOGY ORDERABLES COM Final Result [facility] CLIA # [id number] [address] [place] [id number] * (ABNORMAL) LACTIC ACID (05/11/2025 11:52 PM CDT) [facility] LACTIC ACID 2.5(H) <=2.0 mmol/L 05/12/2025 12:42 AM [facility] Blood BLOOD SPECIMEN / Unknown Venipuncture / Unknown 05/11/2025 11:52 PM CDT 05/12/2025 12:09 AM CDT Jase Paul MD CHEMISTRY ORDERABLES Final Result [facility] CLIA # [id number] [address] [place] [id number] * (ABNORMAL) CBC WITH DIFFERENTIAL (05/11/2025 11:52 PM CDT) [facility] WBC 12.7(H) 4.0 - 10.0 K/uL 05/12/2025 12:49 AM [facility] RBC 3.54(L) 3.93 - 5.22 M/uL 05/12/2025 12:49 AM [facility] HEMOGLOBIN 10.6(L) 11.2 - 15.7 g/dL 05/12/2025 12:49 AM [facility] HEMATOCRIT 31.9(L) 34.1 - 44.9 % 05/12/2025 12:49 AM [facility] MCV 90.1 79.4 - 94.8 fL 05/12/2025 12:49 AM [facility] MCH 29.9 25.6 - 32.2 pg 05/12/2025 12:49 AM [facility] MCHC 33.2 32.2 - 35.5 g/dL 05/12/2025 12:49 AM [facility] RDW 13.5 11.0 - 14.5 % 05/12/2025 12:49 AM [facility] RDW-STDEV 44.9 36.9 - 56.9 fL 05/12/2025 12:49 AM [facility] PLATELETS 456(H) 163 - 337 K/uL 05/12/2025 12:49 AM CDT [facility] MPV 10.9 10.0 - 14.8 fL 05/12/2025 12:49 AM CDT [facility] Blood Venipuncture / Unknown 05/11/2025 11:52 PM CDT 05/12/2025 12:09 AM CDT Jase Paul MD HEMATOLOGY ORDERABLES Final Result Performing Organization Address City/[facility]/ZIP Co de Phone Number [facility] CLIA # [id number] [address] [place] [phone] * TYPE AND SCREEN (05/11/2025 11:52 PM CDT) ABO/RH TYPE O POS 05/12/2025 1:20 AM CDT [facility] ANTIBODY SCREEN Negative 05/12/2025 1:20 AM CDT [facility] Blood Venipuncture / Unknown 05/11/2025 11:52 PM CDT 05/12/2025 12:09 AM CDT Jase Paul MD BLOOD BANK ORDERABLES Final Result Performing Organization Address [facility] Co de Phone Number [facility] CLIA # [id number] [address] [place] [id number] * (ABNORMAL) COMPREHENSIVE METABOLIC PANEL (05/11/2025 11:52 PM CDT) SODIUM 139 136 - 145 mmol/L 05/12/2025 12:42 AM CDT [facility] POTASSIUM 3.9 3.5 - 5.1 mmol/L 05/12/2025 12:42 AM CDT [facility] CHLORIDE 103 98 - 107 mmol/L 05/12/2025 12:42 AM CDT [facility] CO2 23 22 - 29 mmol/L 05/12/2025 12:42 AM CDT [facility] CALCIUM 9.6 8.6 - 10.0 mg/dL 05/12/2025 12:42 AM [facility] BUN 20 6 - 20 mg/dL 05/12/2025 12:42 AM [facility] CREATININE 0.76 0.51 - 0.95 mg/dL 05/12/2025 12:42 AM [facility] GLUCOSE 140(H) 74 - 99 mg/dL 05/12/2025 12:42 AM [facility] TOTAL PROTEIN 6.8 6.6 - 8.7 g/dL 05/12/2025 12:42 AM [facility] ALBUMIN 4.4 3.5 - 5.2 g/dL 05/12/2025 12:42 AM [facility] BILIRUBIN TOTAL <0.2 0.0 - 1.2 mg/dL 05/12/2025 12:42 AM [facility] ALKALINE PHOSPHATASE 48 35 - 104 U/L 05/12/2025 12:42 AM [facility] AST 19 0 - 35 U/L 05/12/2025 12:42 AM [facility] ALT 26 0 - 35 U/L 05/12/2025 12:42 AM [facility] GFR >60 >=60 mL/min/1.7 3 sq meter 05/12/2025 12:42 AM [facility] Comment:eGFR calculated with 2020 CKD-EPI equation. Vegetarian diet, extremely high or low muscle mass, and may affect results. Cystatin C with Glomerular Filtration Rate is a suitable alternative for these patients. ANION GAP 13 5 - 20 mmol/L 05/12/2025 12:42 AM [facility] Blood Venipuncture / Unknown 05/11/2025 11:52 PM CDT 05/12/2025 12:09 AM CDT us Jase Paul MD CHEMISTRY ORDERABLES Final Result [facility] CLIA # [id number] [address] [place] [id number] from Last 3 Months Insurance [facility] [employer] MEDICAID [place] [phone]
--- OUTSIDE RECORDS SUMMARY | 2025-05-12 02:17 | XMS_ITS | Encounter Summary ---
Author Organization [facility] Address [address] [facility] Attmike: Epic Prelude ADT [place]ÉRE[place]ARC[place] [phone] Care Team Providers Care Tree Farmer Name Role Phone Unavailable Primary Care Provider Gloria e Encounter Details Date Type Department Care Team (Latest Contact Info) Description 05/12/2025 Travel Social History Tobacco Use Types Packs/Day Years [...]
[2025-05-12 02:39] LABS: Hematocrit 26.8 % (36-47); Hemoglobin 8.70 g/dL (11.27-16.99); Mean Corpuscular HGB Conc 32.5 g/dL (30-55); Mean Corpuscular Hemoglobin 29.5 pg (27-33); Mean Corpuscular Volume 90.8 fl (85-98); Nucleated Red Blood Cells % 0 %; Platelet Count 368 10^3/cmm (157-399); Red Blood Count 2.95 10^6/uL (3.85-5.65); White Blood Count 11.30 10^3/uL (3.29-11.43)
--- NOTE | 2025-05-12 02:51 | PC.NURSE ---
food production supervisor Vanessa and Dr Bowen were both notified via phone call of patient's arrival to ED 6 via [facility].
[2025-05-12 02:56] LABS: Alanine Aminotransferase 20 U/L (0-33); Albumin Level 3.8 g/dL (3.5-5.2); Alkaline Phosphatase 43 U/L (35-105); Anion Gap 16.8 (5-19); Aspartate Amino Transferase 12 U/L (0-32); Blood Urea Nitrogen 16 mg/dL (6-20); Calcium 8.7 mg/dL (8.5-10.5); Carbon Dioxide 20 mmol/L (22-29); Chloride 107 mmol/L (98-107); Creatinine Clr Calc Pharmacy 129.6546; Globulin 2.3 g/dL (1.3-4.6); Glucose 158 mg/dL (65-115); Osmolality Calculated 294 mOsm/kg (285-295); Potassium 3.8 mmol/L (3.5-5.1); Sodium 140 mmol/L (136-145); Total Protein 6.1 g/dL (6.6-8.7)
--- NOTE | 2025-05-12 03:15 | ANES.PREANE2 ---
Pre-Anesthetic Assessment Height/Weight: Height 5 ft 4 in Weight 165 lb Temp Pulse Resp BP Pulse Ox O2 Del Method 98.7 F 104 H 22 H 104/79 100 Room Air 05/12/25 02:22 05/12/25 02:22 05/12/25 02:22 05/12/25 02:22 05/12/25 02:22 05/12/25 02:22 Preop Diagnosis: post-operative hemmorhage Was Beta Deisy taken within 24 hours: N/A Was Clonidine taken within 24 hours: N/A Social No alcohol and No tobacco Quit smoking 2 weeks ago Exam alert, oriented x 3, clear to auscultation bilaterally and regular rate & rhythm Airway Submandibular: within normal limits Cervical ROM: within normal limits Mallampati: Class II Dentition: full Anesthetic Plan ASA status: 4E Anesthesia: General Other: No prior issues with anesthesia, recent hysterectomy w/o issues NPO since 7 PM, ate a full meal patient presents with vaginal bleeding, hgb 8.7. currently tachycardic and hypotensive Patient currently receiving 2 units PRBCs and has 2 PIV's Denies any cardiac issues Quit smoking 2 weeks ago Type and screen performed METs greater than 4 Plan for general anesthesia Medications/Allergies Home Medications ?Medication ?Instructions ?Recorded ?Confirmed ?Last Taken ?Type nitrofurantoin 100 mg PO BID #20 caps 04/27/25 05/04/25 Unknown Rx monohydrate/macrocrystals 100 mg capsule (Macrobid) oxycodone-acetaminophen 5 mg-325 1 tab PO Q6H PRN pain #30 tabs 04/27/25 05/04/25 Unknown Rx mg tablet (Percocet) phenazopyridine 100 mg tablet 100 mg PO TID #60 tabs 04/27/25 05/04/25 Unknown Rx (Pyridium) oxycodone-acetaminophen 5 mg-325 1 tab PO Q6H PRN pain 7 days #30 05/05/25 05/05/25 Unknown Rx mg tablet (Percocet) tabs Allergies Allergy/AdvReac Type Severity Reaction Status Date / Time morphine AdvReac Mild itching Verified 05/04/25 10:47 PFSH Anesthesia Medical History (Updated 05/12/25 @ 02:59 by Ervin Hernandez MD) Bilateral conjunctivitis Family History Mother Breast cancer Grandmother Diabetes High cholesterol Grandfather Heart disease Denies family history of Colon cancer Ovarian cancer Hypertension Uterine cancer Thyroid disease Stroke Social History Smoking and tobacco/nicotine status: current every day tobacco/nicotine user Second hand smoke exposure: No Alcohol intake: never Substance/Drug Use: never Data Anesthesia 05/12/25 02:22 05/12/25 02:22 Short CBC 05/12/25 Range/Units 02:22 WBC 11.30 (3.29-11.43) 10^3/uL Hgb 8.70 L (11.27-16.99) g/dL Hct 26.8 L (36-47) % MCV 90.8 (85-98) fl Plt Count 368 (157-399) 10^3/cmm Neut % (Auto) 71.8 % Neut # (Auto) 8.12 H (1.8-7.7) 10^3/uL BMP 05/12/25 02:22 Sodium 140 Potassium 3.8 Chloride 107 Carbon Dioxide 20 L BUN 16 Creatinine 0.6 Glucose 158 H Calcium 8.7 Liver Function 05/12/25 Range/Units 02:22 Total Bilirubin 0.2 (0.15-1.2) mg/dL AST 12 (0-32) U/L ALT 20 (0-33) U/L Alkaline Phosphatase 43 (35-105) U/L Albumin 3.8 (3.5-5.2) g/dL
--- NOTE | 2025-05-12 03:18 | PC.NURSE ---
Blood consent form obtained from patient's . Patient did also give verbal consent but due to patient presentation, patient unable to sign blood consent form herself.
--- NOTE | 2025-05-12 03:24 | PC.NURSE ---
Verbal Order from OBGYN Bowen to emergently release 2 units of PRBC. Consent obtained prior to administration of blood. 2 units of O negative verified with primary, charge, and this RN. blood initiated at 0319. OBGYN at bedside. Units released: [id number] O negative Expiration Date: 06/07/2025 [id number] O negative Expiration Date: 06/12/2025 Both units rapidly transfused IV infusion as directed by MD. See ED Vitals for transfusion vital signs.
--- NOTE | 2025-05-12 03:44 | W.PM.OPSFHP ---
Same Day Surgery H&P Indication for Procedure/HPI DATE OF PROCEDURE: May 12, 2025 CHIEF COMPLAINT/INDICATIONFOR SURGICAL PROCEDURE: vaginal bleeding PREOP DIAGNOSIS: post-operative hemmorhage PLANNED PROCEDURE: Operation Date: 05/12/25 03:30 Proposed Procedures exam under anesthesia possible exploratory laparotomy 34 y.o. s/p ZACARIAS April 25, 2025 was doing well was eating, voiding, and ambulating well until 11 pm on May 11, 2025 when she began to have heavy vaginal bleeding bleeding bright red blood with large clots no pain Medications/Allergies* Allergies/Adverse Reactions Allergy/AdvReac Type Severity Reaction Status Date / Time morphine AdvReac Mild itching Verified 05/04/25 10:47 Pertinent History/Comorbid Conditions* Medical History (Updated 05/12/25 @ 02:59 by Ervin Hernandez MD) Bilateral conjunctivitis Family History (Updated 01/02/25 @ 09:46 by Caitlin Benavides CMA) Diabetes Grandmother High cholesterol Grandmother Heart disease Grandfather Breast cancer Mother Denies family history of Colon cancer Ovarian cancer Hypertension Uterine cancer Thyroid disease Stroke Social History Smoking and tobacco/nicotine status: current every day tobacco/nicotine user Second hand smoke exposure: No Alcohol intake: never Substance/Drug Use: never Pertinent Exam Findings alert, oriented x 3, clear to auscultation bilaterally and regular rate & rhythm Abd: soft, nondistended, nontender Vulva: normal Vagina: + bright red blood; + large clots unable to visualize site of bleeding Recommendations Surgery/Procedure today Coding Level of Care Code Acute Code for g Fwd
--- NOTE | 2025-05-12 03:49 | W.PM.OPSUD ---
Surgery/Procedure H&P Update DATE OF PROCEDURE: May 12, 2025 DATE H&P PERFORMED: 05/12/25 H&P UPDATE INFORMATION: I have reviewed H&P completed within last 30 days, I have examined patient prior to procedure and No changes to prior documentation PREOP DIAGNOSIS: post-operative hemmorhage PLANNED PROCEDURE: Operation Date: 05/12/25 03:30 Proposed Procedures p TVH(Not Applicable) - Torsten Garcia MD
[2025-05-12] MEDS: ceFAZolin 2,000 mg SDV 2000 MG IVP (04:01)
--- NOTE | 2025-05-12 04:18 | PC.NURSE ---
Both units of blood continued with pt to OR.
--- NOTE | 2025-05-12 04:50 | P.OP_ITS ---
Operative Report Date of procedure: May 12, 2025 Pre-op diagnosis: s/p hysterectomy April 25, 2025 acute vaginal bleeding Post-op diagnosis: same Post-op findings: Intact vaginal cuff suture line No active bleeding Small 1.5 cm ?raw? abraded surface on suture line Normal vaginal mucosa Procedure done: Examination under anesthesia Over-sewing of a portion of vaginal cuff Implants: none Specimens removed/disposition: none Surgeon: Ron Bowen MD Green Promotions Specialist: Torsten Garcia MD Anesthesia: General Estimated blood loss (mL): 10 Complications: none Findings: see above Condition: stable Disposition: PACU Brief History: 34 y.o. s/p ZACARIAS April 25, 2025 Was doing well Began to have heavy vaginal bleeding Procedure: The patient was taken to the OR and placed supine on the table. General endotracheal anesthesia was induced. The patient was placed in dorsolithotomy position. A Davis catheter was placed. The perineum was prepped and draped in the usual sterile fashion. A bivalve speculum was placed in the vagina. The vagina was examined in its entirety. There was no active bleeding. The vaginal cuff suture line was intact. There was a small 1.5 cm ?raw? abraded area that was oozing minimally. O-Vicryl suture was placed over this area. Damien was sprayed on this area. The vagina was then packed with Kerlex. The patient was then placed supine and awakened. Postoperative condition: stable EBL: 10 cc Complications: none Sponge, needle and instrument counts correct x two
--- NOTE | 2025-05-12 05:07 | ED_ITS ---
HPI - Female Genitourinary 2 General: Chief complaint: Vaginal Bleeding Stated complaint: Vag Bleed Post surg Time Seen by Provider: 05/12/25 02:09 History of Present Illness: 34 yo F s/p hysterectomy on Apr 25 at [facility] facility. Procedure was attempted transvaginally but complicated by bladder injury requiring conversion to open; laparoscopic port sites also present per pt. At 2300 today, awoke to urinate and noted blood on toilet paper, then passed small clots followed by heavy bleeding ?pouring out.? Outside facility ([facility]) documented moderate continual bleeding with two large plum-sized clots; Hgb 10.6. Pt reports no nausea, vomiting, or lightheadedness. She felt cold. EMS reports BP trended down en route and initiated IV fluids. OSH course reportedly hemodynamically stable. On arrival here, pt anxious and fearful; OB-PRESS OPERATOR PRINTING surgeon (Dr. Bowen) who performed the surgery is en route for evaluation. exam deferred here pending OB-PRESS OPERATOR PRINTING. Related Data Previous Rx's ?Medication ?Instructions ?Recorded nitrofurantoin 100 mg PO BID #20 caps 04/27 monohydrate/macrocrystals 100 mg capsule (Macrobid) oxycodone-acetaminophen 5 mg-325 1 tab PO Q6H PRN pain #30 tabs 04/27/25 mg tablet (Percocet) phenazopyridine 100 mg tablet 100 mg PO TID #60 tabs 0 04/27/25 (Pyridium) oxycodone-acetaminophen 5 mg-325 1 tab PO Q6H PRN pain 7 days #30 05/05/25 mg tablet (Percocet) tabs Allergies Allergy/AdvReac Type Severity Reaction Status Date / Time morphine AdvReac Mild itching Verified 05/04/25 10:47 PFSH ED 2 PFSH: Medical History (Updated 05/12/25 @ 02:59 by Ervin Hernandez MD) Bilateral conjunctivitis Family History Mother Breast cancer Grandmother Diabetes High cholesterol Grandfather Heart disease Denies family history of Colon cancer Ovarian cancer Hypertension Uterine cancer Thyroid disease Stroke Social History Smoking and tobacco/nicotine status: current every day tobacco/nicotine user Second hand smoke exposure: No Alcohol intake: never Substance/Drug Use: never Physical Exam 2 Const: COMMON NORMALS: patient oriented x3 and alert HENMT: COMMON NORMALS: normocephalic and atraumatic HEAD & SCALP: n ormocephalic and atraumatic Eye: COMMON NORMALS: Equal, round and reactive pupils present, EOMs intact bilaterally and no scleral icterus PUPIL: Yes Equal, round and reactive pupils present Resp: COMMON NORMALS: normal respiratory effort and No retractions Cardio: COMMON NORMALS: regular rate, regular rhythm and No murmurs present (Cardio) RATE: regular rate RHYTHM: regular rhythm OTHER: Borderline tachycardic GI: COMMON NORMALS: Normal to inspection, nondistended, normoactive bowel sounds present, Soft to palpation and non-tender PALPATION: Yes Soft to palpation : OTHER: is a external genital exam shows active vaginal bleeding with large clots Neuro: COMMON NORMALS: patient oriented x3 SENSORIUM/ORIENTATION: Yes alert Psych: OTHER: Anxious Skin: COMMON NORMALS: no rashes or lesions noted GENERAL SKIN EXAM: no rashes or lesions noted OTHER: Pale Course 2 Vital Signs: Vital signs: Vital Signs Temperature 98.4 F 05/12/25 04:53 Pulse Rate 101 H 05/12/25 05:03 Respiratory Rate 18 05/12/25 05:03 Blood Pressure 111/67 05/12/25 05:03 Pulse Oximetry 100 05/12/25 05:03 Oxygen Delivery Me thod Simple Mask 05/12/25 05:03 Oxygen Flow Rate 10 05/12/25 05:03 [facility] - Female Medical Decision Making Hemoglobin at outside facility was 10.6 and on recheck is 8.7 only 2 hours later. I believe her true hemoglobin to be lower than that given rapidity of bleeding and time it takes for hemoglobin to accurately per tray intravascular losses and the acute bleeding scenario. Patient arrived relatively hemodynamically stable but was hyperventilating and pale. At onepoint she began to become bradycardic and hypotensive and almost lost consciousness. I believe this to be multifactorial, a combination of acute blood loss and vasovagal attack. I placed her on a nonrebreather not hooked up to oxygen to help rebreather her and CO2 which did seem to help. Blood pressure remains soft however with mean arterial pressure in the 50s after heart rate regained to 90 bpm prompting us to rapidly transfuse 2 units of O- blood. She continues to bleed vaginally. She was evaluated by the on-call CLEANING MACHINE OPERATOR who will take her directly to the OR suite for surgical management of her vaginal bleeding. Patient is agreeable to the plan. Lab Data 05/12/25 02:22 05/12/25 02:22 Laboratory Results WBC 11.30 10^3/uL (3.29-11.43) 05/12/25 02:22 RBC 2.95 10^6/uL (3.85-5.65) L 05/12/25 02:22 Hgb 8.70 g/dL (11.27-16.99) L 05/12/25 02:22 Hct 26.8 % (36-47) L 05/12/25 02:22 MCV 90.8 fl (85-98) 05/12/25 02:22 MCH 29.5 pg (27-33) 05/12/25 02:22 MCHC 32.5 g/dL (30-55) 05/12/25 02:22 RDW 13.4 % (12.1-15.1) 05/12/25 02:22 Plt Count 368 10^3/cmm (157-399) 05/12/25 02:22 MPV 10.3 fL (7.4-10.4) 05/12/25 02:22 Neut % (Auto) 71.8 % 05/12/25 02:22 Lymph % (Auto) 21.6 % 05/12/25 02:22 Sequoyah % (Auto) 4.9 % 05/12/25 02:22 Eos % (Auto) 0.8 % 05/12/25 02:22 Baso % (Auto) 0.6 % 05/12/25 02:22 Neut # (Auto) 8.12 10^3/uL (1.8-7.7) H 05/12/25 02:22 Lymph # (Auto) 2.4 10^3/uL (0.8-4.8) 05/12/25 02:22 Sequoyah # (Auto) 0.6 10^3/uL (0.2-0.9) 05/12/25 02:22 Eos # (Auto) 0.1 10^3/uL (0.0-0.8) 05/12/25 02:22 Baso # (Auto) 0.1 10^3/uL (0.0-0.1) 05/12/25 02:22 Nucleated RBC % (auto) 0 % 05/12/25 02:22 Nucleated RBCs # 0.0 /100WBC 05/12/25 02:22 Sodium 140 mmol/L (136-145) 05/12/25 02:22 Potassium 3.8 mmol/L (3.5-5.1) 05/12/25 02:22 Chloride 107 mmol/L (98-107) 05/12/25 02:22 Carbon Dioxide 20 mmol/L (22-29) L 05/12/25 02:22 Anion Gap 16.8 (5-19) 05/12/25 02:22 BUN 16 mg/dL (6-20) 05/12/25 02:22 Creatinine 0.6 mg/dL (0.5-0.9) 05/12/25 02:22 GFR Calculation 113.8 mL/min (90-130) 05/12/25 02:22 Glucose 158 mg/dL (65-115) H 05/12/25 02:22 Calculated Osmolality 294 mOsm/kg (285-295) 05/12/25 02:22 Calcium 8.7 mg/dL (8.5-10.5) 05/12/25 02:22 Total Bilirubin 0.2 mg/dL (0.15-1.2) 05/12/25 02:22 AST 12 U/L (0-32) 05/12/25 02:22 ALT 20 U/L (0-33) 05/12/25 02:22 Alkaline Phosphatase 43 U/L (35-105) 05/12/25 02:22 Total Protein 6.1 g/dL (6.6-8.7) L 05/12/25 02:22 Albumin 3.8 g/dL (3.5-5.2) 05/12/25 02:22 Globulin 2.3 g/dL (1.3-4.6) 05/12/25 02:22 Blood Type O Positive 05/12/25 02:22 Rho(D) Type Rh positive 05/12/25 02:22 Antibody Screen Negative 05/12/25 02:22 Crossmatch See Detail 05/12/25 02:22 No radiology studies performed this visit Discharge Plan Discharge Patient Disposition: Admitted As Inpatient Admit Provider: Ron Bowen Clinical Impression: Post-operative haemorrhage Condition: Serious Coding Level of Care Code ED Dough Mixing Machine Operator for Suleman Harding
--- NOTE | 2025-05-12 05:35 | PM.OP2 ---
Brief Operative Note Date of procedure: 05/12/25 Pre-op diagnosis: h/o hysterectomy April 25, 2024; acute vaginal bleeding Post-op diagnosis: same Procedure Done: exam under anesthesia Surgeon: Ron Bowen Complications: none Post-op Plan: admit for postop management Condition: stable Disposition: floor
[2025-05-12 07:42] LABS: Hematocrit 34.9 % (36-47); Hemoglobin 11.50 g/dL (11.27-16.99); Mean Corpuscular HGB Conc 33.0 g/dL (30-55); Mean Corpuscular Hemoglobin 29.1 pg (27-33); Mean Corpuscular Volume 88.4 fl (85-98); Platelet Count 273 10^3/cmm (157-399); Red Blood Count 3.95 10^6/uL (3.85-5.65); White Blood Count 9.31 10^3/uL (3.29-11.43)
[2025-05-12] MEDS: HYDROcodone-acetaminophen 5-325 mg Tablet PO ×3 (09:02→21:28)
[2025-05-13] MEDS: HYDROcodone-acetaminophen 5-325 mg Tablet PO ×2 (04:01→10:05)
[2025-05-13 04:07] VITALS: BP 98/63; PULSE 77; RESP 15; TEMP 36.7; O2SAT 98
[2025-05-13 05:02] LABS: Hematocrit 30.4 % (36-47); Hemoglobin 10.30 g/dL (11.27-16.99); Mean Corpuscular HGB Conc 33.9 g/dL (30-55); Mean Corpuscular Hemoglobin 29.9 pg (27-33); Mean Corpuscular Volume 88.1 fl (85-98); Platelet Count 290 10^3/cmm (157-399); Red Blood Count 3.45 10^6/uL (3.85-5.65); White Blood Count 14.88 10^3/uL (3.29-11.43)
--- NOTE | 2025-05-13 05:07 | PC.NURSE ---
Vaginal packing removed at 0500. Pt tolerated well.
[2025-05-13 09:09] VITALS: BP 104/69; PULSE 83; RESP 16; TEMP 36.8; O2SAT 98
--- NOTE | 2025-05-13 10:12 | PC.NURSE ---
Orders from Garcia to transition pt off hyrocodone stop Ibuprofen and to start toradol PO 10mg q6hr at 1400
[2025-05-13] MEDS: polyethylene glycol 3350 Pkt 17 gm PO (12:38)
[2025-05-13 16:32] VITALS: BP 115/86; PULSE 92; RESP 16; TEMP 36.6; O2SAT 98
--- NOTE | 2025-05-13 18:32 | PM.OBGYDC ---
Discharge Providers [employer] Date of Admission: 05/12/25 03:43 Date of Discharge: 05/14/25 Attending Provider at Admission: Ron Bowen MD Attending Provider at Discharge: Ron Bowen MD Diagnoses at Discharge Discharge Diagnosis 1. S/P hysterectomy: 2. Postoperative hemorrhage involving genitourinary system following genitourinary procedure: Reason for Visit Reason for Visit: Vag Bleed Post surg Hospital Course Hospital Course 34-year-old admitted with vaginal bleeding two weeks after laparoscopic-assisted vaginal hysterectomy (LAVH) converted to abdominal hysterectomy. Taken to the operating room for examination under anesthesia, which noted minimal but consistent vaginal bleeding at the suture line from the prior gynecologic procedure. Bleeding was controlled with additional sutures, and the vagina was packed; bleeding stopped and the vaginal pack was later removed with no recurrence. Has remained afebrile. Pain has improved on medication. Desires discharge home today. At time of discharge, reports minimal vaginal bloody discharge, is able to walk and void, but has not had a bowel movement despite a dose of polyethylene glycol (Miralax) given. She will continue miralax at home and if needed an enema may be concidered. Physical Exam Const: COMMON NORMALS: patient oriented x3 and alert Resp: COMMON NORMALS: normal respiratory effort Cardio: COMMON NORMALS: regular rate and regular rhythm RATE: regular rate RHYTHM: regular rhythm GI: COMMON NORMALS: Normal to inspection, nondistended, normoactive bowel sounds present (suprapubic incision intact) : OTHER: minimal blood in pad after voiding. Extremity: COMMON NORMALS: no calf tenderness Neuro: COMMON NORMALS: patient oriented x3 SENSORIUM/ORIENTATION: Yes alert Psych: COMMON NORMALS: cooperative, speech normal and activity/motor behavior normal SPEECH: Yes normal speech Urinary Catheter Management: Davis: Cath Placed During This Visit: yes, but has since been removed by the nurse Reason for Continuing Indwelling Catheter: Decision to DC Catheter Date Urinary Catheter Removed: 05/13/25 Time Urinary Catheter Discontinued: 05:00 Discharge Data Studies Completed and Pending Laboratory Results WBC 14.88 10^3/uL (3.29-11.43) H 05/13/25 04:45 RBC 3.45 10^6/uL (3.85-5.65) L 05/13/25 04:45 Hgb 10.30 g/dL (11.27-16.99) L 05/13/25 04:45 Hct 30.4 % (36-47) L 05/13/25 04:45 MCV 88.1 fl (85-98) 05/13/25 04:45 MCH 29.9 pg (27-33) 05/13/25 04:45 MCHC 33.9 g/dL (30-55) 05/13/25 04:45 RDW 15.0 % (12.1-15.1) 05/13/25 04:45 Plt Count 290 10^3/cmm (157-399) 05/13/25 04:45 MPV 10.6 fL (7.4-10.4) H 05/13/25 04:45 Neut % (Auto) 71.8 % 05/12/25 02:22 Lymph % (Auto) 21.6 % 05/12/25 02:22 [place] % (Auto) 4.9 % 05/12/25 02:22 Eos % (Auto) 0.8 % 05/12/25 02:22 Baso % (Auto) 0.6 % 05/12/25 02:22 Neut # (Auto) 8.12 10^3/uL (1.8-7.7) H 05/12/25 02:22 Lymph # (Auto) 2.4 10^3/uL (0.8-4.8) 05/12/25 02:22 [place] # (Auto) 0.6 10^3/uL (0.2-0.9) 05/12/25 02:22 Eos # (Auto) 0.1 10^3/uL (0.0-0.8) 05/12/25 02:22 Baso # (Auto) 0.1 10^3/uL (0.0-0.1) 05/12/25 02:22 Nucleated RBC % (auto) 0 % 05/12/25 02:22 Nucleated RBCs # 0.0 /100WBC 05/12/25 02:22 Sodium 140 mmol/L (136-145) 05/12/25 02:22 Potassium 3.8 mmol/L (3.5-5.1) 05/12/25 02:22 Chloride 107 mmol/L (98-107) 05/12/25 02:22 Carbon Dioxide 20 mmol/L (22-29) L 05/12/25 02:22 Anion Gap 16.8 (5-19) 05/12/25 02:22 BUN 16 mg/dL (6-20) 05/12/25 02:22 Creatinine 0.6 mg/dL (0.5-0.9) 05/12/25 02:22 GFR Calculation 113.8 mL/min (90-130) 05/12/25 02:22 Glucose 158 mg/dL (65-115) H 05/12/25 02:22 Calculated Osmolality 294 mOsm/kg (285-295) 05/12/25 02:22 Calcium 8.7 mg/dL (8.5-10.5) 05/12/25 02:22 Total Bilirubin 0.2 mg/dL (0.15-1.2) 05/12/25 02:22 AST 12 U/L (0-32) 05/12/25 02:22 ALT 20 U/L (0-33) 05/12/25 02:22 Alkaline Phosphatase 43 U/L (35-105) 05/12/25 02:22 Total Protein 6.1 g/dL (6.6-8.7) L 05/12/25 02:22 Albumin 3.8 g/dL (3.5-5.2) 05/12/25 02:22 Globulin 2.3 g/dL (1.3-4.6) 05/12/25 02:22 Blood Type O Positive 05/12/25 02:22 Rho(D) Type Rh positive 05/12/25 02:22 Antibody Screen Negative 05/12/25 02:22 Crossmatch See Detail 05/12/25 02:22 Vitals Last Vital Signs Temp 98 F 05/13/25 16:32 Pulse 92 05/13/25 16:32 Resp 16 05/13/25 16:32 BP 115/86 05/13/25 16:32 Pulse Ox 98 05/13/25 16:32 O2 Del Method Room Air 05/13/25 16:32 O2 Flow Rate 10 05/12/25 05:03 Results Labs OB ([facility]): Blood Type O Positive 05/12/25 Antibody Screen Negative 05/12/25 Hct, (36-47) 30.4 % L 05/13/25 Hgb, (11.27-16.99) 10.30 g/dL L 05/13/25 Rho(D) Type Rh positive 05/12/25 Plt Count, (157-399) 290 10^3/cmm 05/13/25 Pap Smear Interpret See note A 03/06/25 Discharge Plan Discharge Patient Disposition: Home Condition: Stable Prescriptions: New ketorolac 10 mg Tablet 10 mg PO Q8H PRN (Reason: Pain) Qty: 9 0RF Continued phenazopyridine [Pyridium] 100 mg tablet 100 mg PO TID Qty: 60 2RF Discontinued oxycodone-acetaminophen [Percocet] 5-325 mg tablet 1 tab PO Q6H PRN (Reason: pain) 7 Days Qty: 30 0RF oxycodone-acetaminophen [Percocet] 5-325 mg tablet 1 tab PO Q6H PRN (Reason: pain) Qty: 30 0RF nitrofurantoin monohyd/m-cryst [Macrobid] 100 mg capsule 100 mg PO BID Qty: 20 0RF Rx Instructions: must administer with a meal/food Discharge Order = DC NOW: Discharge Order (Routine); Ordered 05/13/25 Ordered By: Torsten Garcia Referrals: SHAHZAD Bach FNP [Nurse Practitioner, Family Practice] - 05/19/25 11:20 am Ron Bowen MD [Physician, [employer]] Discharge Diet: Regular Discharge Activity: Limit activity as instructed Patient Instructions: Acute Wound Care (DC), Opioid Safety (DC), OB Discharge Report, OB Food/Drug Interaction Guide, Opioid Safety, Post Anesthesia Care, Patient Portal & Rudy Instructions Activity Restrictions/Additional Instructions: No vaginal penetration for 8 weeks Plan of Treatment: Postoperative vaginal bleeding : Bleeding at the suture line identified on examination under anesthesia; controlled with additional sutures; no recurrence after pack removal; currently minimal vaginal bloody discharge at time of discharge. - Discharge home today with instructions in case of worsening symptoms or return of vaginal bleeding. - Attend already scheduled outpatient follow-up visit with Dr. Bowen. Postoperative pain : Pain improved with medication during admission; will still require medication after discharge. - Use nonsteroidal anti-inflammatory drugs (NSAIDs) after discharge. Constipation : No bowel movement at time of discharge despite dose of polyethylene glycol (Miralax) given. - Continue laxative at home and use enema if needed. Follow-up : Outpatient follow-up arranged. - Already scheduled follow-up outpatient visit with Dr. Bowen. Discharge Attestations [employer] Time Spent in Discharge Care*: greater than 30 min Coding Level of Care Code Acute Code for Chg Fwd Diagnoses S/P hysterectomy Z90.710 Postoperative hemorrhage involving genitourinary system following genitourinary procedure N99.820 Procedure type: genitourinary Surgical complication system/body Area: genitourinary
[2025-05-13 19:40] VITALS: BP 110/74; PULSE 87; RESP 16; TEMP 36.8; O2SAT 98
== END 2025-05-13 19:51 | disposition home or self-care (01) | DRG 908 ==
LOC: ER 03:20 → OR 03:42 → OBGYN 03:43
PROVIDERS: Obstetrics & Gynecology; Student in an Organized Health Care Education/Training Program; Admitting Provider Obstetrics & Gynecology; Emergency Provider Student in an Organized Health Care Education/Training Program; Visit Provider Obstetrics & Gynecology
DX: N99.820 Postprocedural hemorrhage of a genitourinary system organ or structure following a genitourinary system procedure (principal); D62 Acute posthemorrhagic anemia; F17.200 Nicotine dependence, unspecified, uncomplicated; K59.00 Constipation, unspecified; Z83.3 Family history of diabetes mellitus; Z80.3 Family history of malignant neoplasm of breast; Z82.49 Family history of ischemic heart disease and other diseases of the circulatory system; Z90.710 Acquired absence of both cervix and uterus; I95.9 Hypotension, unspecified; R00.1 Bradycardia, unspecified
CPT/HCPCS: 12345; 36415; 80053; 85025; 85027; 86850; 86900; 86920; 99285; A4216; J0330; J0690; J1100; J1885; J2371; J2405; J2704; J3490; J7121; J9999; P9016

== ENCOUNTER → 2025-05-22 16:18 | Outpatient (BNVA) | payer MEDICAID, SELFPAY | PROVIDERS: Visit Provider Obstetrics & Gynecology | DX: N99.820 Postprocedural hemorrhage of a genitourinary system organ or structure following a genitourinary system procedure (principal) | CPT/HCPCS: 81000 ==

== ENCOUNTER → 2025-05-31 10:34 | Outpatient (BNVA) | payer MEDICAID, SELFPAY | PROVIDERS: Visit Provider Obstetrics & Gynecology | DX: N99.820 Postprocedural hemorrhage of a genitourinary system organ or structure following a genitourinary system procedure (principal) | CPT/HCPCS: 83001; 84443; 85025 ==